=== PATIENT | female | born 2000 | race Two or more races ===

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

== ENCOUNTER 2022-08-13 17:31 | Emergency (ER) | payer BC ==
[~2022-08-13] VITALS: Ht 152.4 cm; Wt 105.7 kg
[~2022-08-13 17:31] MED LIST changes: -Veetids 500500 MG PO
[2022-08-13] MEDS ORDERED: Veetids 500500 MG PO (20:41)
== END 2022-08-13 20:57 | disposition home or self-care (01) ==
LOC: ER 17:31
DX: J02.0 Streptococcal pharyngitis (principal); Z88.5 Allergy status to narcotic agent
CPT/HCPCS: 36415; 71046; 76705; 86308; A9270; J1885; J7030

== ENCOUNTER → 2022-08-13 | Outpatient (CLI) | payer BC ==
[~2022-08-13] MED LIST changes: +Veetids 500500 MG PO
[2022-08-13 11:17] LABS: BASOPHILS ABSOLUTE AUTO 0.01 K/mm3 (0.00-0.23); BASOPHILS PERCENT AUTO 0 % (0-2); EOSINOPHILS ABSOLUTE AUTO 0.05 K/mm3 (0.00-0.68); EOSINOPHILS PERCENT AUTO 1 % (0-6); Hematocrit 43.7 % (33.0-51.0); Hemoglobin 14.6 g/dL (11.5-16.0); IMMATURE GRAN ABSOLUTE AUTO 0.03 K/mm3 (0.00-0.10); IMMATURE GRAN PERCENT AUTO 0 % (0-1); LYMPHOCYTES PERCENT AUTO 12 % (21-46); MONOCYTES ABSOLUTE AUTO 0.85 K/mm3 (0.16-1.47); MONOCYTES PERCENT AUTO 11 % (4-13); Mean Corpuscular HGB 29.5 pg (26.0-34.0); Mean Corpuscular HGB Conc 33.4 g/dL (31.5-36.5); Mean Corpuscular Volume 88 fL (80-100); Mean Platelet Volume 8.6 fL (9.1-12.4); NEUTROPHILS ABSOLUTE AUTO 5.59 K/mm3 (1.96-9.15); NEUTROPHILS PERCENT AUTO 75 % (41-73); Platelet Count 269 K/mm3 (150-400); RDW Coefficient Variation 12.9 % (11.7-14.2); RDW Standard Deviation 41.4 fL (35.1-46.3); Red Blood Cell Count 4.95 M/mm3 (3.80-5.20); White Blood Cell Count 7.43 K/mm3 (4.00-11.30)
[2022-08-13 11:28] LABS: Albumin, Blood 3.6 g/dL (3.4-5.0); Albumin/Globulin Ratio 0.7 (0.8-1.8); Bilirubin, Total 0.3 mg/dL (0.1-1.0); Bun/Creatinine Ratio 11.8 (12.0-20.0); Calcium, Blood 8.7 mg/dL (8.5-10.1); Creatinine, Blood 0.76 mg/dL (0.40-1.00); Globulin, Blood 4.9 g/dL (2.2-4.0); Potassium, Blood 3.4 mmol/L (3.5-5.5); Total Protein, Blood 8.5 g/dL (6.4-8.2)
== END | disposition home or self-care (01) ==
LOC: LAB 10:36 → LAB SHORT 10:36
PROVIDERS: Physician Assistant
DX: J02.9 Acute pharyngitis, unspecified (principal); R10.13 Epigastric pain
CPT/HCPCS: 80053; 83690; 84484; 85025; 87081

== ENCOUNTER 2024-06-15 10:37 | Emergency (ER) | payer OTHER ==
[~2024-06-15] VITALS: Ht 154.9 cm; Wt 95.2 kg
[~2024-06-15 10:37] MED LIST changes: +Veetids 500500 MG PO
[2024-06-15 11:06] VITALS: BP 125/65
[2024-06-15] MEDS ORDERED: HYDROcodone 5-APAP 325 TAB PO ONE (11:10)
[2024-06-15] MEDS ORDERED: Norco 5-325 Ta1 EACH PO (12:19)
[2024-06-15] MEDS ORDERED: CRUTCH2 XX (12:34)
== END 2024-06-15 13:26 | disposition home or self-care (01) ==
LOC: ER 10:37
DX: S82.55XA Nondisplaced fracture of medial malleolus of left tibia, initial encounter for closed fracture (principal); W10.1XXA Fall (on)(from) sidewalk curb, initial encounter; Z88.5 Allergy status to narcotic agent
CPT/HCPCS: 29515; 73610; 99283-25; A9270

== ENCOUNTER 2024-06-22 09:40 | Day surgery (SDC) | payer OTHER ==
[~2024-06-22] VITALS: Ht 162.6 cm; Wt 99.6 kg
[~2024-06-22 09:40] MED LIST changes: +CRUTCH2 XX; +Lactated Ringer's 1,000 ML IV ONE; +Norco 5-325 Ta1 EACH PO; +Triamcinolone Inj Susp 40 MG / ML 1ML Vial ONE
[2024-06-22] MEDS ORDERED: FentaNYL Citrate 50 MCG/ML 2 ML Injection ONE ×2 (10:11→11:33)
[2024-06-22] MEDS ORDERED: Midazolam HCl 1MG / ML 2ML Vial ONE (10:11)
[2024-06-22] MEDS ORDERED: propofoL 20 ML IV ONE (10:12)
[2024-06-22] MEDS ORDERED: Ondansetron HCl 2 MG / ML 2ML Vial ONE (10:13)
[2024-06-22] MEDS ORDERED: Dexamethasone Sod Phos 10 MG/ML 1ML VIAL ONE (10:13)
[2024-06-22] MEDS ORDERED: Lidocaine 2%-Epineph 1:200000 20 ML SDV ONE (10:14)
[2024-06-22] MEDS ORDERED: Bupivacaine 0.5% HCl 5 MG/ML 30MLVIAL ONE (10:15)
[2024-06-22] MEDS ORDERED: Lactated Ringer's 1,000 ML IV ONE (10:41)
--- NOTE | 2024-06-22 10:42 | NUR ---
06/22/24 1042 Esme Remy MOM AND DAD PRESENT IN ROOM WITH PT. NO QUESTIONS OR CONCERNS
[2024-06-22] MEDS ORDERED: CeFAZolin Sodium 2,000 MG VIAL ONE (10:45)
[2024-06-22] MEDS ORDERED: NS 50 ML IV ONE (10:45)
[2024-06-22] MEDS ORDERED: Bupivacaine 0.5% HCl 5 MG/ML 30MLVIAL INJ ONE ×2 (11:36)
[2024-06-22] MEDS ORDERED: EPINEPhrine HCl 1 MG/ML 1ML Amp XX ONE ×2 (11:37)
[2024-06-22] MEDS ORDERED: Ketorolac Tromethamine 30mg Vial ONE (11:56)
--- NOTE | 2024-06-22 12:07 | NUR ---
06/22/24 1207 Fernanda Mora1MG OF EPI (1MG/ML) ADDED TO 20ML OF 0.5% BUPIVACAINE (5MG/ML) TO MAKE TO MAKE 0.5% BUPIVACAINE 0.5% WITH EPI 1:200,000 ON FILED.
[2024-06-22 12:35] VITALS: BP 140/78
--- NOTE | 2024-06-22 13:10 | NUR ---
06/22/24 1310 Luz Maria Ruth PT DENIED ANY PAIN, NO NAUSEA. PT ABLE TO TOLERATE FLUIDS. MOM AND DAD AT SIDE OF RECLINER. VSS. PT READY TO GO HOME. PT EDUCATION PROVIDED. ALL QUESTIONS WERE ANSWERED/CONCERNS ADDRESSED. PT COLLECTED ALL OF HER PERSONAL BELONGINGS. PRESCRIPTION WILL BE PICKED UP FROM HER PERFERRED PHARMACY.
== END 2024-06-22 13:08 | disposition home or self-care (01) ==
LOC: ORSCSDS 09:40
PROVIDERS: Podiatrist Foot & Ankle Surgery
PROC: 0QSH04Z Reposition Left Tibia with Internal Fixation Device, Open Approach (ICD-10-PCS; principal; 2024-06-22 11:00)
DX: S82.52XA Displaced fracture of medial malleolus of left tibia, initial encounter for closed fracture (principal); W01.0XXA Fall on same level from slipping, tripping and stumbling without subsequent striking against object, initial encounter; E66.01 Morbid (severe) obesity due to excess calories; Z68.41 Body mass index [BMI] 40.0-44.9, adult
CPT/HCPCS: C1713; J0171; J0690; J1100; J1885; J2250; J2405; J2704; J3010; J3301; J7120

== ENCOUNTER 2025-09-19 08:26 | Emergency (ER) | payer OTHER ==
[~2025-09-19] VITALS: Ht 157.5 cm; Wt 108.9 kg
[~2025-09-19 08:26] MED LIST changes: -Lactated Ringer's 1,000 ML IV ONE; -Triamcinolone Inj Susp 40 MG / ML 1ML Vial ONE
[2025-09-19 08:46] LABS: BASOPHILS ABSOLUTE AUTO 0.02 K/mm3 (0.00-0.23); BASOPHILS PERCENT AUTO 0 % (0-2); EOSINOPHILS ABSOLUTE AUTO 0.12 K/mm3 (0.00-0.68); EOSINOPHILS PERCENT AUTO 1 % (0-6); Hematocrit 42.0 % (33.0-51.0); Hemoglobin 13.8 g/dL (11.5-16.0); IMMATURE GRAN ABSOLUTE AUTO 0.04 K/mm3 (0.00-0.10); IMMATURE GRAN PERCENT AUTO 0 % (0-1); LYMPHOCYTES ABSOLUTE AUTO 1.26 K/mm3 (0.84-5.20); LYMPHOCYTES PERCENT AUTO 10 % (21-46); MONOCYTES ABSOLUTE AUTO 0.62 K/mm3 (0.16-1.47); MONOCYTES PERCENT AUTO 5 % (4-13); Mean Corpuscular HGB Conc 32.9 g/dL (31.5-36.5); Mean Corpuscular Volume 90 fL (80-100); NEUTROPHILS ABSOLUTE AUTO 10.11 K/mm3 (1.96-9.15); NEUTROPHILS PERCENT AUTO 83 % (41-73); NRBC ABSOLUTE 0.00 K/mm3 (0.00-0.02); NRBC Auto 0.0 /100 WBC (0.0-0.2); Platelet Count 336 K/mm3 (150-400); RDW Coefficient Variation 12.6 % (11.7-14.2); RDW Standard Deviation 41.1 fL (35.1-46.3)
[2025-09-19] MEDS ORDERED: Ketorolac Tromethamine 15mg Vial IV ONE (08:50)
[2025-09-19] MEDS ORDERED: Ondansetron HCl 2 MG / ML 2ML Vial IV ONE (08:50)
[2025-09-19 09:14] LABS: Source, Urine Clean Catch
[2025-09-19 09:18] LABS: Bilirubin, Urine Neg (Neg); Color, Urine Yellow (P-Yellow); Glucose Qualitative, Urine Neg (Neg); Ketones, Urine Neg (Neg); Leukocyte Esterase, Urine Neg (Neg); Protein, Urine 1+ (Neg); Specific Gravity, Urine 1.020 (1.003-1.022); Urobilinogen, Urine NORM (Normal)
[2025-09-19 09:20] LABS: Alanine Aminotransfer (ALT/SGP 24.0 U/L (12-78); Albumin, Blood 3.5 g/dL (3.4-5.0); Albumin/Globulin Ratio 0.8 (0.8-1.8); Anion Gap 7.0 mmol/L (3-11); Aspartate Aminotrans (AST/SGOT 14.0 U/L (12-37); Bilirubin, Total 0.5 mg/dL (0.1-1.0); Blood Urea Nitrogen 11.0 mg/dL (8-24); CO2, Blood 24.0 mmol/L (21-32); Calcium, Blood 8.0 mg/dL (8.5-10.1); Chloride, Blood 107.0 mmol/L (98-108); Creatinine, Blood 0.63 mg/dL (0.40-1.00); Globulin, Blood 4.3 g/dL (2.2-4.0); Glucose, Blood 103.0 mg/dL (70-99); Potassium, Blood 3.5 mmol/L (3.5-5.5); Sodium, Blood 134.0 mmol/L (136-145); Total Protein, Blood 7.8 g/dL (6.4-8.2)
[2025-09-19 09:33] LABS: Red Blood Cells, Urine 0-2 /hpf (0-2); White Blood Cells, Urine 0-2 /hpf (0-5)
[2025-09-19] MEDS ORDERED: Naprosyn500 MG PO (10:31)
[2025-09-19 10:36] VITALS: BP 120/65
== END 2025-09-19 10:36 | disposition home or self-care (01) ==
LOC: ER 08:26
PROVIDERS: Physician Assistant
DX: R09.1 Pleurisy (principal); Z88.5 Allergy status to narcotic agent; Z59.89 Other problems related to housing and economic circumstances
CPT/HCPCS: 71046; 71260; 80053; 81001; 83690; 84703; 85025; 85379; 93005; 93010; 96374; 96375; 99284-25; J1885; J2405; Q9967